=== PATIENT | female | born 1975 ===

== ENCOUNTER 2022-04-10 05:59 | Day surgery (SDC) | payer OTHER ==
[~2022-04-10] VITALS: Ht 162.6 cm; Wt 95.3 kg
[~2022-04-10 05:59] MED LIST: PEPCID40 MG PO
== END 2022-04-10 16:00 | disposition home or self-care (01) ==
LOC: CIR.AMB 05:59
PROVIDERS: ATTEND Specialist
DX: N93.9 Abnormal uterine and vaginal bleeding, unspecified (principal); Z86.16 Personal history of COVID-19; J45.909 Unspecified asthma, uncomplicated